=== PATIENT | female | born 1985 | race American Indian/Alaskan Native ===

== ENCOUNTER 2021-08-11 14:21 | Observation (INO) | payer BC ==
--- NOTE | 2021-08-11 15:26 | Event Note ---
ED Screening Note Date of service: 08/11/21 Time: 15:26 ED Screening Note: Patient presents for hemoglobin of 5 Referred here by her doctor Has heavy vaginal bleeding due to fibroids No prior history of blood transfusions per patient, however she does have a history of anemia This initial assessment/diagnostic orders/clinical plan/treatment(s) is/are subject to change based on patients health status, clinical progression and re- assessment by fellow clinical providers in the ED. Further treatment and workup at subsequent clinical providers discretion. Patient/guardian urged not to elope from the ED as their condition may be serious if not clinically assessed and managed. Initial orders include: Labs
[2021-08-11] MEDS ORDERED: SODIUM CHLORIDE 0.9% 1000 ML 1,000 ML IV ONE (16:22)
--- NOTE | 2021-08-11 16:25 | Emergency Department Report ---
HPI - General Chief Complaint: Weakness Time Seen by Provider: 08/11/21 15:22 - HPI HPI: MSE 1 The patient is a 36-year-old female present with chief complaint of anemia. The patient states she went to see her primary physician yesterday for evaluation of her ventral hernia she has noticed that gotten bigger over the past several months. During her work-up the patient had blood drawn she received a call today telling her that her blood count was low at "5" she should come to the emergency department for blood transfusion. Patient states lately she has noticed a heart rate increases with any type of exertion. Patient denies shortness of breath. Patient denies bright red blood per rectum or melena. Patient states she began her cycle 2 days ago. Patient states she goes through approximately 5 pads per day her cycles usually last approximately 5 days. The patient states she does not have a cloud systems administrator here in [place] ED Past Medical Hx - Past Medical History Previous Medical History?: Yes Additional medical history: Hx of Anemia, uterine fibroids - Surgical History Past Surgical History?: No Additional Surgical History: Transvaginal fibroid removal about 5 yrs ago - Family History Family history: no significant - Social History Smoking Status: Current Some Day Smoker Substance Use Type: Alcohol (Occasional), Marijuana ED Review of Systems ROS: Stated complaint: LABS/LOW BLOOD Other details as noted in HPI Constitutional: no symptoms reported Eyes: denies: eye pain ENT: denies: throat pain Respiratory: denies: shortness of breath Cardiovascular: palpitations Endocrine: no symptoms reported Gastrointestinal: denies: hematemesis, melena, hematochezia Genitourinary: denies: dysuria Musculoskeletal: denies: back pain Neurological: denies: headache Physical Exam - Physical Exam Vital Signs: Vital Signs 08/11/21 15:03 Temperature 98.3 F Pulse Rate 109 H Respiratory 18 Rate Blood Pressure 113/63 [Right] O2 Sat by Pulse 100 Oximetry Physical Exam: GENERAL: The patient is well-developed well-nourished female sitting in chair not appearing to be in acute distress. [] HEENT: Normocephalic. Atraumatic. Extraocular motions are intact. Patient has moist mucous membranes. NECK: Supple. Trachea midline CHEST/LUNGS: Clear to auscultation. There is no respiratory distress noted. HEART/CARDIOVASCULAR: Regular. There is no tachycardia. There is no gallop rub or murmur. ABDOMEN: Abdomen is soft, nontender. Patient has normal bowel sounds. There is no abdominal distention. Easily reducible ventral hernia present SKIN: There is no rash. There is no edema. There is no diaphoresis. NEURO: The patient is awake, alert, and oriented. The patient is cooperative. The patient has no focal neurologic deficits. The patient has normal speech. GCS 15 MUSCULOSKELETAL: There is no evidence of acute injury. ED Course Vital Signs 08/11/21 15:03 Temperature 98.3 F Pulse Rate 109 H Respiratory 18 Rate Blood Pressure 113/63 [Right] O2 Sat by Pulse 100 Oximetry ED Medical Decision Making - Lab Data Result diagrams: 08/11/21 16:05 08/11/21 16:05 Laboratory Tests 08/11/21 08/11/21 08/11/21 16:00 16:05 16:05 WBC 6.6 RBC 4.01 Hgb 6.3 L Hct 22.4 L MCV 56 L MCH 16 L MCHC 28 L RDW 22.3 H Plt Count 403 Add Manual Diff Complete Total Counted 100 Seg Neuts % (Manual) 59.0 Lymphocytes % (Manual) 38.0 H Monocytes % (Manual) 1.0 Metamyelocytes % 2.0 Nucleated RBC % Not Reportable Seg Neutrophils # Man 3.9 Band Neutrophils # 0.0 Lymphocytes # (Manual) 2.5 Abs React Lymphs (Man) 0.0 Monocytes # (Manual) 0.1 Eosinophils # (Manual) 0.0 Basophils # (Manual) 0.0 Metamyelocytes # 0.1 Myelocytes # 0.0 Promyelocytes # 0.0 Blast Cells # 0.0 WBC Morphology Not Reportable Hypersegmented Neuts Not Reportable Hyposegmented Neuts Not Reportable Hypogranular Neuts Not Reportable Smudge Cells Not Reportable Toxic Granulation Not Reportable Toxic Vacuolation Not Reportable Dohle Bodies Not Reportable Pelger-Huet Anomaly Not Reportable Ivonne Rods Not Reportable Platelet Estimate Consistent w auto Clumped Platelets Not Reportable Plt Clumps, EDTA Not Reportable Large Platelets Not Reportable Giant Platelets Not Reportable Platelet Satelliting Not Reportable Plt Morphology Comment Not Reportable RBC Morphology Not Reportable Dimorphic RBCs Not Reportable Polychromasia 2+ Hypochromasia 3+ Poikilocytosis 2+ Anisocytosis Not Reportable Microcytosis 2+ Macrocytosis Not Reportable Spherocytes Not Reportable Pappenheimer Bodies Not Reportable Sickle Cells Not Reportable Target Cells Not Reportable Tear Drop Cells Not Reportable Ovalocytes Not Reportable Helmet Cells Not Reportable Rosenthal-Caldwell Bodies Not Reportable [place] Rings Not Reportable Brittany Cells Not Reportable Bite Cells Not Reportable Crenated Cell Not Reportable Elliptocytes Not Reportable Acanthocytes (Spur) Not Reportable Rouleaux Not Reportable Hemoglobin C Crystals Not Reportable Schistocytes Not Reportable Malaria parasites Not Reportable Celestine Bodies Not Reportable Hem Pathologist Commnt No PT INR APTT Sodium 139 Potassium 3.9 Chloride 101.8 Carbon Dioxide 23 Anion Gap 18 BUN 12 Creatinine 0.9 Estimated GFR > 60 BUN/Creatinine Ratio 13 Glucose 98 Calcium 9.5 Total Bilirubin 0.20 AST 16 ALT 13 Alkaline Phosphatase 103 Total Protein 8.7 H Albumin 4.4 Albumin/Globulin Ratio 1.0 HCG, Qual Blood Type O POSITIVE Antibody Screen Negative Crossmatch See Detail 08/11/21 08/11/21 16:05 16:05 WBC RBC Hgb Hct MCV MCH MCHC RDW Plt Count Add Manual Diff Total Counted Seg Neuts % (Manual) Lymphocytes % (Manual) Monocytes % (Manual) Metamyelocytes % Nucleated RBC % Seg Neutrophils # Man Band Neutrophils # Lymphocytes # (Manual) Abs React Lymphs (Man) Monocytes # (Manual) Eosinophils # (Manual) Basophils # (Manual) Metamyelocytes # Myelocytes # Promyelocytes # Blast Cells # WBC Morphology Hypersegmented Neuts Hyposegmented Neuts Hypogranular Neuts Smudge Cells Toxic Granulation Toxic Vacuolation Dohle Bodies Pelger-Huet Anomaly Ivonne Rods Platelet Estimate Clumped Platelets Plt Clumps, EDTA Large Platelets Giant Platelets Platelet Satelliting Plt Morphology Comment RBC Morphology Dimorphic RBCs Polychromasia Hypochromasia Poikilocytosis Anisocytosis Microcytosis Macrocytosis Spherocytes Pappenheimer Bodies Sickle Cells Target Cells Tear Drop Cells Ovalocytes Helmet Cells Rosenthal-Caldwell Bodies [place] Rings Oakley Cells Bite Cells Crenated Cell Elliptocytes Acanthocytes (Spur) Rouleaux Hemoglobin C Crystals Schistocytes Malaria parasites Celestine Bodies Hem Pathologist Commnt PT 13.9 INR 0.96 APTT 26.0 Sodium Potassium Chloride Carbon Dioxide Anion Gap BUN Creatinine Estimated GFR BUN/Creatinine Ratio Glucose Calcium Total Bilirubin AST ALT Alkaline Phosphatase Total Protein Albumin Albumin/Globulin Ratio HCG, Qual Negative Blood Type Antibody Screen Crossmatch - Radiology Data Radiology results: report reviewed (Pelvic ultrasound), image reviewed (Pelvic ultrasound) [facility] [address] [place] [address] Ultrasound Report Signed Patient: AUSTYN CAPUTO MR#: [id number] : 1985 Acct:[id number] Age/Sex: 36 / F ADM Date: 08/11/21 Loc: ED Attending Dr: Ordering Physician: FAROOQ FITZGERALD MD Date of Service: 08/11/21 Procedure(s): US transvaginal Accession Number(s): [id number] cc: FAROOQ FITZGERALD MD ULTRASOUND PELVIS INDICATION: Symptomatic anemia, history of fibroids. TECHNIQUE: Transabdominal. Duplex Color Doppler used: Yes. COMPARISON: None available FINDINGS: Uterus: Enlarged, measuring 13.2 x 8.4 x 10.7 cm and contains multiple probable fibroids measuring up to 9.4 cm. No other significant abnormality. Right Ovary: Not seen. No significant right adnexal abnormality. Left Ovary: Not seen. No significant left adnexal abnormality. Urinary Bladder: Not seen. Free Fluid: None. Additional Findings: None. IMPRESSION: Multiple probable uterine fibroids as above. Signer Name: Justin Coyle MD Signed: 10:13 PM Workstation Name: [id number] Transcribed By: [place] Dictated By: Justin Coyle MD Electronically Authenticated By: Justin Coyle MD Signed Date/Time: 08/11/212212 DD/ 11 TD/TT: Print Cancel - Differential Diagnosis Symptomatic anemia, menorrhagia, uterine fibroids Critical care attestation.: If time is entered above; I have spent that time in minutes in the direct care of this critically ill patient, excluding procedure time. ED Disposition Clinical Impression: Symptomatic anemia, Menorrhagia Disposition: ADMITTED INPATIENT Is pt being admited?: Yes Does the pt Need Aspirin: No Condition: Fair Referrals: RYAN GARDNER MD [Primary Care Provider] - 3-5 Days Time of Disposition: 22:58 (Case discussed with Dr. Trammell)
[2021-08-11 16:40] LABS: Mean Corpuscular HGB Conc 28 % (30-34); Platelet Count 403 K/mm3 (140-440); Red Blood Count 4.01 M/mm3 (3.65-5.03)
[2021-08-11 16:49] LABS: Hematocrit 22.4 % (30.3-42.9); Mean Corpuscular Volume 56 fl (79-97); Red Cell Distribution Width 22.3 % (13.2-15.2)
[2021-08-11 16:50] LABS: Hemoglobin 6.3 gm/dl (10.1-14.3)
[2021-08-11 16:59] LABS: INR 0.96 (0.87-1.13)
[2021-08-11 17:08] LABS: Alanine Aminotransferase 13 units/L (7-56); Albumin 4.4 g/dL (3.9-5); BUN/Creatinine Ratio 13; Blood Urea Nitrogen 12 mg/dL (7-17); Calcium 9.5 mg/dL (8.4-10.2); Hemolysis Index 1
[2021-08-11 18:05] LABS: Hypochromasia 3+; Platelet Estimate Consistent w Auto; Poikilocytosis 2+; Total Cells Counted 100
[2021-08-11] MEDS ORDERED: SODIUM CHLORIDE 0.9% 500 ML 500 ML IV ONE (21:21)
--- NOTE | 2021-08-11 22:18 | Ultrasound Report ---
ULTRASOUND PELVIS INDICATION: Symptomatic anemia, history of fibroids. TECHNIQUE: Transabdominal. Duplex Color Doppler used: Yes. COMPARISON: None available FINDINGS: Uterus: Enlarged, measuring 13.2 x 8.4 x 10.7 cm and contains multiple probable fibroids measuring up to 9.4 cm. No other significant abnormality. Right Ovary: Not seen. No significant right adnexal abnormality. Left Ovary: Not seen. No significant left adnexal abnormality. Urinary Bladder: Not seen. Free Fluid: None. Additional Findings: None. IMPRESSION: Multiple probable uterine fibroids as above. Signer Name: Justin Coyle MD Signed: 08/11/2021 10:13 PM Workstation Name: [id number]
[2021-08-12 08:10] VITALS: BP 118/70
--- NOTE | 2021-08-12 08:29 | History and Physical Report ---
History of Present Illness Date of examination: 08/12/21 Date of admission: 08/11/21 22:56 Chief complaint: symptomatic anemia History of present illness: 36-year-old G0 (LMP 08/09/21), complicated by history of uterine fibroids presenting after her PCP reported that she had a hemoglobin of 5 on routine blood screening when patient reported that she was coming to evaluate her ventral hernia. Patient with known history of uterine fibroids desiring . Patient reports that she is currently on her menstrual cycle, now day 3. Past History Past Medical History: other (uterine fibriods) Past Surgical History: myomectomy (vaginal myomectomy) Family/Genetic History: none Social history: other (social alcohol use) Medications and Allergies Allergies Allergy/AdvReac Type Severity Reaction Status Date / Time No Known Allergies Allergy Unverified 08/11/21 16:34 Home Medications Medication Instructions Recorded Confirmed Last Taken Type No Known Home Medications [No 08/12/21 08/12/21 Unknown History Reported Home Medications] Review of Systems All systems: negative (expect HPI) - Vital Signs Vital signs: Vital Signs Temp Pulse Resp BP Pulse Ox 98.3 F 109 H 18 113/63 100 08/11/21 15:03 08/11/21 15:03 08/11/21 15:03 08/11/21 15:03 08/11/21 15:03 Temp Pulse Resp BP Pulse Ox 98.6 F 82 16 118/70 100 08/12/21 08:05 08/12/21 08:05 08/12/21 08:05 08/12/21 08:05 08/12/21 08:05 - Physical Exam Abdomen: Positive: normal appearance, soft, hernia Uterus: Positive: enlarged Results Result Diagrams: 08/11/21 16:05 08/11/21 16:05 Abnormal lab results 08/11/21 08/11/21 08/11/21 Range/Units 16:00 16:05 16:05 Hgb 6.3 L (10.1-14.3) gm/dl Hct 22.4 L (30.3-42.9) % MCV 56 L (79-97) fl MCH 16 L (28-32) pg MCHC 28 L (30-34) % RDW 22.3 H (13.2-15.2) % Lymphocytes % (Manual) 38.0 H (13.4-35.0) % Total Protein 8.7 H (6.3-8.2) g/dL Crossmatch See Detail All other labs normal. Assessment and Plan - Patient Problems (1) Symptomatic anemia Current Visit: Yes Status: Acute Plan to address problem: Doing well status post 1 unit PRBC with known menorrhagia and uterine fibroids, desiring --Provera 10 mg daily x10 days --Follow-up with outpatient SECURITY SERVICES MANAGER, recommend reproductive specialist given desiring --Discharge home
--- NOTE | 2021-08-12 08:30 | Discharge Summary ---
Providers - Providers Date of Admission: 08/11/21 22:56 Date of discharge: 08/12/21 Attending physician: IZZY BUSTAMANTE JR, MD Primary care physician: RYAN GARDNER Hospitalization Reason for admission: other (symptomatic anemia) Hospital course: Status post 1 unit of PRBCs for symptomatic anemia with improvement of symptoms. Condition at discharge: Good Disposition: 01 HOME / SELF CARE / HOMELESS - Discharge Diagnoses (1) Symptomatic anemia Status: Acute Plan - Provider Discharge Summary Activity: routine Diet: routine Instructions: routine Additional instructions: [] Smoking cessation referral if applicable(refer to patient education folder for contact #) [] Refer to [facility] Booklet Call your doctor immediately for: * Fever > 100.5 * Heavy vaginal bleeding ( >1 pad per hour) * Severe persistent headache * Shortness of breath * Reddened, hot, painful area to leg or breast * Drainage or odor from incision. * Keep incision clean and dry at all times and follow doctor's instructions regarding bathing/showering - Follow up plan Follow up: RYAN GARDNER MD [Primary Care Provider] - 3-5 Days
== END 2021-08-12 09:10 | disposition home or self-care (01) ==
LOC: ED 14:21 → OB 22:56
PROVIDERS: ADMIT Obstetrics & Gynecology; ATTEND Obstetrics & Gynecology
DX: D50.0 Iron deficiency anemia secondary to blood loss (chronic) (principal); D25.9 Leiomyoma of uterus, unspecified; N92.0 Excessive and frequent menstruation with regular cycle; F17.210 Nicotine dependence, cigarettes, uncomplicated; Z79.899 Other long term (current) drug therapy; Z98.890 Other specified postprocedural states
CPT/HCPCS: 36415; 36430; 76830; 76856; 80053; 84703; 85025; 85610; 85730; 86850; 86900; 86901; 86920; 96360; 96361; 99284; G0378; J7030; J7040; P9016; 85007

== ENCOUNTER 2021-10-16 23:50 | Emergency (ER) | payer BC ==
[2021-10-17 04:54] LABS: Bilirubin,Urine NEG (Negative); Blood,Urine NEG (Negative); Color,Urine Straw (Yellow); Mucus,Urine FEW /HPF; Protein,Urine <15 mg/dL mg/dL (Negative); Urobilinogen,Urine < 2.0 mg/dL (<2.0)
[2021-10-17 07:21] VITALS: BP 130/80
== END 2021-10-17 07:22 | disposition home or self-care (01) ==
LOC: ED 23:50
DX: R10.9 Unspecified abdominal pain (principal); Z53.21 Procedure and treatment not carried out due to patient leaving prior to being seen by health care provider
CPT/HCPCS: 81001; 99283

== ENCOUNTER 2022-06-19 08:59 | Observation (INO) | payer BC, OTHER ==
[2022-06-19] MEDS ORDERED: SODIUM CHLORIDE 0.9% 500 ML 500 ML IV NR (09:05)
[2022-06-19] MEDS ORDERED: ONDANSETRON 4 MG/2 ML INJ IV PRN (10:00)
[2022-06-19] MEDS ORDERED: ACETAMINOPHEN 325 MG TAB PO PRN (10:00)
[2022-06-19] MEDS ORDERED: HYDROcodone/ACETAMINOPHEN 5-325 MG TAB PO PRN (10:00)
[2022-06-19 19:25] LABS: Mean Corpuscular HGB Conc 27 % (30-34); Platelet Count 339 K/mm3 (140-440); Red Blood Count 3.85 M/mm3 (3.65-5.03)
[2022-06-19 19:36] LABS: Hematocrit 21.1 % (30.3-42.9); Hemoglobin 5.8 gm/dl (10.1-14.3); Mean Corpuscular Volume 55 fl (79-97); Red Cell Distribution Width 22.3 % (13.2-15.2)
[2022-06-19 20:25] LABS: Hypochromasia 3+; Total Cells Counted 100
[2022-06-19 20:26] LABS: Anisocytosis 2+; Platelet Estimate Consistent w Auto
[2022-06-19] MEDS ORDERED: diphenhydrAMINE 25 MG CAP PO PRN (20:28)
[2022-06-19] MEDS ORDERED: SODIUM CHLORIDE 0.9% 500 ML 500 ML IV SCH (21:00)
--- NOTE | 2022-06-20 08:21 | History and Physical Report ---
History of Present Illness Date of examination: 06/20/22 Date of admission: 06/19/22 18:27 Chief complaint: Severe Anemia History of present illness: Pt is a 36 year old female with known fibroids and dysfunctional uterine bleeding who presents with severe anemia and hemoglobin of 5. Overnight, she has received 3 units of PRBCs. Her Hemoglobin and Hematocrit are ordered to be drawn at 0730. Past History Past Medical History: hematologic disorders (anemia ) Past Surgical History: myomectomy (vaginal myomectomy ) TURNING LATHE TENDER History: fibroids Family/Genetic History: none Social history: no significant social history - Obstetrical History : 1 Para: 0 Hx # Term Pregnancies: 0 Number of Pregnancies: 0 Spontaneous Abortions: 1 Induced : 0 Number of Living Children: 0 Medications and Allergies Allergies Allergy/AdvReac Type Severity Reaction Status Date / Time No Known Allergies Allergy Verified 10/17/21 00:35 Home Medications Medication Instructions Recorded Confirmed Last Taken Type medroxyPROGESTERone ACETATE 10 mg PO QDAY #10 tablet 08/12/21 Unknown Rx [Provera] Dicyclomine [Bentyl] 10 mg PO QID #20 capsule 10/17/21 Unknown Rx Ketorolac [Toradol] 10 mg PO Q6H PRN #20 tablet 10/17/21 Unknown Rx Active Meds: Active Medications Acetaminophen (Acetaminophen 325 Mg Tab) 650 mg PO Q4H PRN PRN Reason: Pain MILD(1-3)/Fever >100.5/OBRIEN Last Admin: 06/19/22 20:50 Dose: 650 mg Hydrocodone Bitart/Acetaminophen (Hydrocodone/Acetaminophen 5-325 Mg Tab) 2 each PO Q6H PRN PRN Reason: Pain, Moderate (4-6) Diphenhydramine HCl (Diphenhydramine 25 Mg Cap) 25 mg PO Q6H PRN PRN Reason: Itching Last Admin: 06/19/22 20:50 Dose: 25 mg Sodium Chloride (Nacl 0.9% 500 Ml) 500 mls @ 50 mls/hr IV DIRECT JEFF Ondansetron HCl (Ondansetron 4 Mg/2 Ml Inj) 4 mg IV Q8H PRN PRN Reason: Nausea And Vomiting Sodium Chloride (Sodium Chloride 0.9% 10 Ml Flush Syringe) 10 ml IV PRN PRN PRN Reason: LINE FLUSH Stop: 06/24/22 09:59 Review of Systems All systems: negative - Vital Signs Vital signs: Vital Signs Pulse Resp BP Pulse Ox 87 16 102/68 100 06/19/22 21:14 06/19/22 21:14 06/19/22 21:14 06/19/22 21:14 Temp Pulse Resp BP Pulse Ox 68 16 115/82 98 06/19/22 23:32 06/19/22 23:32 06/19/22 23:32 06/19/22 23:32 - Physical Exam Breasts: Positive: deferred Abdomen: Positive: soft Results Result Diagrams: 06/19/22 19:00 Abnormal lab results 06/19/22 06/19/22 Range/Units 19:00 19:00 Hgb 5.8 L* (10.1-14.3) gm/dl Hct 21.1 L (30.3-42.9) % MCV 55 L (79-97) fl MCH 15 L (28-32) pg MCHC 27 L (30-34) % RDW 22.3 H (13.2-15.2) % Eosinophils % (Manual) 7.0 H (0.0-4.3) % Basophils % (Manual) 4.0 H (0.0-1.8) % Basophils # (Manual) 0.2 H (0.0-0.1) K/mm3 Crossmatch See Detail All other labs normal. Assessment and Plan A: Severe anemia s/p 3 units PRBCs Uterine Fibroids Dysfunctional Uterine Bleeding P: Follow up post transfusion hemoglobin and hematocrit s/p General Surgery consult with plan for open hernia repair Pt scheduled for outpatient ultrasound Schedule myomectomy and hernia repair in late June/early July 2022
--- NOTE | 2022-06-20 08:25 | Short Stay Summary ---
Short Stay Documentation Date of service: 06/20/22 - History H&P: dictated Social history: no significant social history - Allergies and Medications Current Medications: Allergies No Known Allergies Allergy (Verified 10/17/21 00:35) Home Medications Medication Instructions Recorded Confirmed Last Taken Type medroxyPROGESTERone ACETATE 10 mg PO QDAY #10 tablet 08/12/21 Unknown Rx [Provera] Dicyclomine [Bentyl] 10 mg PO QID #20 capsule 10/17/21 Unknown Rx Ketorolac [Toradol] 10 mg PO Q6H PRN #20 tablet 10/17/21 Unknown Rx Active Medications Acetaminophen (Acetaminophen 325 Mg Tab) 650 mg PO Q4H PRN PRN Reason: Pain MILD(1-3)/Fever >100.5/OBRIEN Last Admin: 06/19/22 20:50 Dose: 650 mg Hydrocodone Bitart/Acetaminophen (Hydrocodone/Acetaminophen 5-325 Mg Tab) 2 each PO Q6H PRN PRN Reason: Pain, Moderate (4-6) Diphenhydramine HCl (Diphenhydramine 25 Mg Cap) 25 mg PO Q6H PRN PRN Reason: Itching Last Admin: 06/19/22 20:50 Dose: 25 mg Sodium Chloride (Nacl 0.9% 500 Ml) 500 mls @ 50 mls/hr IV DIRECT JEFF Ondansetron HCl (Ondansetron 4 Mg/2 Ml Inj) 4 mg IV Q8H PRN PRN Reason: Nausea And Vomiting Sodium Chloride (Sodium Chloride 0.9% 10 Ml Flush Syringe) 10 ml IV PRN PRN PRN Reason: LINE FLUSH Stop: 06/24/22 09:59 - Physical exam Breasts: deferred - Hospital course Hospital course: Pt was admitted for blood transfusion due to severe anemia. She received 3 units of PRBCs prior to discharge. She will follow up in the office in 2 wks for follow up and repeat ultrasound. - Disposition Condition at discharge: Stable Disposition: 01 HOME / SELF CARE / HOMELESS - Discharge Diagnoses (1) Fibroid uterus Status: Acute Qualifiers: Uterine leiomyoma location: unspecified location Qualified Code(s): D25.9 - Leiomyoma of uterus, unspecified (2) Menorrhagia Status: Acute (3) Symptomatic anemia Status: Acute Short Stay Discharge Plan Activity: no restrictions Weight Bearing Status: Full Weight Bearing Follow up with: JENNIFER GALLARDO MD [Staff Physician] - 14 Days ()
[2022-06-20 13:13] VITALS: BP 110/70
[2022-06-20 14:02] LABS: Hematocrit 31.4 % (30.3-42.9); Hemoglobin 9.2 gm/dl (10.1-14.3)
== END 2022-06-20 15:06 | disposition home or self-care (01) ==
LOC: UNDOADMOB 08:59 → 3A 08:59 → OB 18:27
PROVIDERS: ADMIT Obstetrics & Gynecology; ATTEND Obstetrics & Gynecology
DX: D64.9 Anemia, unspecified (principal); D25.9 Leiomyoma of uterus, unspecified; N92.0 Excessive and frequent menstruation with regular cycle; N93.8 Other specified abnormal uterine and vaginal bleeding; Z79.899 Other long term (current) drug therapy; Z98.890 Other specified postprocedural states
CPT/HCPCS: 36415; 36430; 85014; 85018; 85025; 86850; 86900; 86901; 86920; G0378; G0379; P9016; 85007